=== PATIENT | female | born 1970 | race Caucasian/White ===

== ENCOUNTER → 2017-08-14 | Outpatient (CLI) | payer OTHER ==
--- NOTE | 2017-08-14 15:55 | RAD ---
DATE: 08/14/2017 EXAM: DIGITAL DIAGNOSTIC BILATERAL, BREAST RIGHT HISTORY: Right breast lump COMPARISON: Baseline study This study was interpreted with the benefit of Computerized Aided Detection (CAD ). The breast parenchyma shows scattered fibroglandular densities. Breast parenchyma level B. FINDINGS: A BB was placed over the area of palpable concern at the 2-3 o'clock location in the right breast. There is a 15 mm smooth superficial nodule at that level located far posteriorly, 10-11 cm from the nipple. No other unusual breast densities are seen. Minimal benign type calcifications present. No suspicious microcalcifications are evident. Right breast ultrasound, 08/14/2017: A target ultrasound of the right breast lump was performed. This nodule lies at the 2-3:00 location approximately 12 cm from the nipple in the right parasternal region. It lies in a subcutaneous location along the posterior margin of the skin. It measures 13 x 13 x 7 mm. It is hypoechoic with mildly heterogeneous internal echoes. Its margins are smooth with posterior acoustic enhancement. No internal color flow is seen. The features are suggestive of an epidermal inclusion cyst. There is a questionable tiny lucent tract extending into the skin. A neoplastic etiology is much less likely. IMPRESSION: 1. The palpable nodule in the medial right breast lies along the posterior margin of the skin with features suggestive of an epidermal inclusion cyst. A neoplastic etiology is much less likely. Surgical consultation is suggested. Percutaneous biopsy is not generally advisable if an epidermal inclusion cyst is a consideration, due to the probability of an extensive inflammatory response to leakage of this material into the soft tissues postbiopsy. 2. No other mammographic abnormality is detected. BI-RADS 3-probably benign findings PQRS compliance statement: Patient information was entered into a reminder system with a target due date for the next mammogram. Mammography is a sensitive method for finding small breast cancers, but it does not detect them all and is not a substitute for careful clinical examination. A negative mammogram does not negate a clinically suspicious finding and should not result in delay in biopsying a clinically suspicious abnormality. "Our facility is accredited by the [employer] Mammography Program." MTDD
== END | disposition home or self-care (01) ==
LOC: MAMMO 13:21
PROVIDERS: ATTEND Nurse Practitioner Family
DX: R92.8 Other abnormal and inconclusive findings on diagnostic imaging of breast (principal)
CPT/HCPCS: 76641; 77066